=== PATIENT | female | born 1970 | race Asian ===

== ENCOUNTER 2017-01-05 22:01 | Emergency (ER) | payer MEDICAID ==
[~2017-01-05] VITALS: Ht 162.6 cm; Wt 59.0 kg
[2017-01-05 22:14] VITALS: BP 115/85
--- NOTE | 2017-01-06 01:45 | NUR ---
TO ER OF2
--- NOTE | 2017-01-06 01:52 | NUR ---
Patient being evaluated by physician.
[2017-01-06 02:05] VITALS: BP 115/85
--- NOTE | 2017-01-06 02:05 | NUR ---
Patient discharged with v/s stable. Written and verbal after care instructions given and explained. Patient alert, oriented and verbalized understanding of instructions. Ambulatory with steady gait. All questions addressed prior to discharge. ID band removed. Patient advised to follow up with PMD. Rx of PREDNISONE, DEXTROMETHORPHANHYDROBROMIDE/PROMETHAZINE given. Patient educated on indication of medication including possible reaction and side effects. Opportunity to ask questions provided and answered.
== END 2017-01-06 02:05 | disposition home or self-care (01) ==
LOC: MED 22:01
DX: J20.9 Acute bronchitis, unspecified (principal)

== ENCOUNTER 2018-11-09 15:16 | Emergency (ER) | payer MEDICAID ==
[~2018-11-09] VITALS: Ht 152.4 cm; Wt 66.2 kg
--- NOTE | 2018-11-09 16:00 | NUR ---
PT AMBULATED TO BED 7 FOR BEDSIDE TRIAGE
[2018-11-09 16:06] VITALS: BP 128/72
--- NOTE | 2018-11-09 16:10 | NUR ---
Note undone in EDM - 11/09/18 at 1659 by [email or web address] PT C/O COUGH X 6 DAYS, SWOLLEN LYMPH NODES AND EYE DISCHARGE X 3 DAYS. DENIES NVD, CP, SOB. PT DENIES N/V/D; SKIN IS INTACT, PINK/WARM/DRY; AAOX4, PERRL, WITH EVEN AND STEADY GAIT; LUNGS CLEAR BL, BREATHING UNLABORED; HR EVEN AND REGULAR, BL PERIPHERAL PULSES PRESENT; BS ACTIVE X4, NO TENDERNESS TO PALPATION, NO HEPATOSPLENOMEGALLY PALPATED, RESONANT TO PERCUSSION; PT DENIES ANY FEVER, CP, SOB, OR COUGH AT THIS TIME; VSS; PATIENT POSITIONED FOR COMFORT; HOB ELEVATED; BEDRAILS UP X2; BED DOWN.
--- NOTE | 2018-11-09 16:10 | NUR ---
PT BIB SELF C/O FEVER AND BODY ACHES/HEADACHE 10/10 X 2 DAYS. DENIES CP/SOB/NVD. TYLENOL GIVEN IN TRIAGE FOR FEVER. PT DENIES N/V/D; SKIN IS INTACT, PINK/HOT/DRY; AAOX4, PERRL, WITH EVEN AND STEADY GAIT; LUNGS CLEAR BL, BREATHING UNLABORED; HR EVEN AND REGULAR, BL PERIPHERAL PULSES PRESENT; BS ACTIVE X4, NO TENDERNESS TO PALPATION, NO HEPATOSPLENOMEGALLY PALPATED, RESONANT TO PERCUSSION; PT DENIES ANY FEVER, CP, SOB, OR COUGH AT THIS TIME; PT STATES 0/10 PAIN AT THIS TIME; VSS; PATIENT POSITIONED FOR COMFORT; HOB ELEVATED; BEDRAILS UP X2; BED DOWN.
[2018-11-09] MEDS ORDERED: ACETAMINOPHEN EXTRA STRENGTH 500 MG TAB PO ONE (16:20)
[2018-11-09] MEDS ORDERED: ACETAMINOPHEN EXTRA STRENGTH 500 MG TAB ONE (16:27)
--- NOTE | 2018-11-09 16:57 | NUR ---
Note kassy in EDM - 11/09/18 at 1659 by [email or web address] Patient discharged with v/s stable. Written and verbal after care instructions given and explained. Patient alert, oriented and verbalized understanding of instructions. Ambulatory with steady gait. All questions addressed prior to discharge. ID band removed. Patient advised to follow up with PMD. Rx of TESSALON PEARLS, KETOIFEN FUMARATE, CLARITIN, MOTRIN given. Patient educated on indication of medication including possible reaction and side effects. Opportunity to ask questions provided and answered.
[2018-11-09 19:26] VITALS: BP 130/70
--- NOTE | 2018-11-09 19:26 | NUR ---
Patient discharged with v/s stable. Written and verbal after care instructions given and explained. Patient alert, oriented and verbalized understanding of instructions. Ambulatory with steady gait. All questions addressed prior to discharge. ID band removed. Patient advised to follow up with PMD. Rx of ABIEL [place] NAPROSYN given. Patient educated on indication of medication including possible reaction and side effects. Opportunity to ask questions provided and answered.
== END 2018-11-09 19:26 | disposition home or self-care (01) ==
LOC: MED 15:16
DX: B34.9 Viral infection, unspecified (principal)
CPT/HCPCS: 36415; 81002; 81025; 87804; 99283

== ENCOUNTER 2023-03-05 17:43 | Emergency (ER) | payer MEDICAID, OTHER ==
[~2023-03-05] VITALS: Ht 152.4 cm; Wt 68.0 kg
[2023-03-05 17:51] VITALS: BP 121/84; PULSE 61; RESP 20; TEMP 98
[2023-03-05] MEDS ORDERED: KETOROLAC 30 MG/ML VIAL IM ONE (19:10)
[2023-03-05] MEDS ORDERED: IBUP-2213 PO (19:10)
[2023-03-05] MEDS ORDERED: LID5T TP (19:10)
[2023-03-05] MEDS ORDERED: LIDOCAINE 5% 1 EA PATCH TP ONE (19:10)
[2023-03-05] MEDS ORDERED: CYCL-711 PO (19:10)
[2023-03-05] MEDS ORDERED: CYCLOBENZAPRINE 10 MG TAB PO ONE (19:10)
--- NOTE | 2023-03-05 20:49 | NUR ---
Patient discharged with v/s stable. Written and verbal after care instructions given and explained. Patient verbalized understanding. Ambulatory with steady gait. All questions addressed prior to discharge. Advised to follow up with PMD.
== END 2023-03-05 20:49 | disposition home or self-care (01) ==
LOC: MED 17:43
DX: S33.5XXA Sprain of ligaments of lumbar spine, initial encounter (principal); Z98.890 Other specified postprocedural states; Z79.899 Other long term (current) drug therapy; Z79.1 Long term (current) use of non-steroidal anti-inflammatories (NSAID); X58.XXXA Exposure to other specified factors, initial encounter; Y92.89 Other specified places as the place of occurrence of the external cause; Y93.89 Activity, other specified; Y99.8 Other external cause status
CPT/HCPCS: 96372; 99283; J1885

== ENCOUNTER 2024-03-26 08:19 | Emergency (ER) | payer OTHER ==
[~2024-03-26] VITALS: Ht 154.9 cm; Wt 68.0 kg
[~2024-03-26 08:19] MED LIST: CYCL-711 PO; IBUP-2213 PO; LID5T TP
[2024-03-26 08:38] VITALS: BP 138/72; PULSE 71; RESP 16; TEMP 98.7; O2SAT 98
[2024-03-26] MEDS ORDERED: IBUP-2213 PO (09:11)
[2024-03-26] MEDS: KETOROLAC 60 MG/2 ML VIAL IM ONE (09:19)
[2024-03-26 09:45] VITALS: BP 138/72; PULSE 71; RESP 16; TEMP 98.7; O2SAT 98
== END 2024-03-26 09:44 | disposition home or self-care (01) ==
LOC: MED 08:19
DX: M54.50 Low back pain, unspecified (principal); Z79.899 Other long term (current) drug therapy
CPT/HCPCS: 81002; 81025; 96372; 99283; J1885